=== PATIENT | male | born 1995 | race African-American/Black ===

== ENCOUNTER 2019-08-05 04:20 | Emergency (ER) | payer OTHER ==
[~2019-08-05] VITALS: Ht 177.8 cm; Wt 78.5 kg
[2019-08-05 04:23] VITALS: BP 118/66
[2019-08-05 04:50] VITALS: BP 118/66
== END 2019-08-05 04:50 ==
LOC: MED 04:20
DX: Z02.89 Encounter for other administrative examinations (principal); V89.2XXA Person injured in unspecified motor-vehicle accident, traffic, initial encounter; Y93.89 Activity, other specified; Y92.89 Other specified places as the place of occurrence of the external cause; Y99.8 Other external cause status
CPT/HCPCS: 99283